=== PATIENT | female | born 1950 | race Caucasian/White ===

== ENCOUNTER 2016-07-16 20:23 | Emergency (ER) | payer MEDICARE ==
[~2016-07-16] VITALS: Ht 167.6 cm; Wt 82.0 kg
[~2016-07-16 20:23] MED LIST: DICL75 PO; ROBA750T3 PO; TRAM50 PO
[2016-07-16 21:34] VITALS: BP 148/79; PULSE 106; RESP 18; TEMP 98.4; O2SAT 96
[2016-07-16] MEDS ORDERED: LEVO137T18 PO (22:16)
[2016-07-16] MEDS ORDERED: GABA300C5 PO (22:16)
[2016-07-16] MEDS ORDERED: TRAM50TA PO (22:16)
[2016-07-16] MEDS ORDERED: ULTR50TA5 PO (22:27)
[2016-07-16] MEDS ORDERED: DOXY100C PO (22:27)
--- NOTE | 2016-07-16 22:27 | PD ---
HPI . Cat bite Chief Complaint: Bite or Sting Time Seen by Provider: 22:18 Travel History International Travel<30 days: No Contact w/Intl Traveler<30days: No Traveled to known affect area: No History of Present Illness HPI The patient was trying to catch a feral cat with a towel. She was inadvertently bitten on the finger. She states her last tetanus shot was 2 years ago. She reports allergy to penicillin. The cat is known to them. He has been coming around the house for a while and they have been feeding him. They were trying to catch him tonight to take him to the vet for routine vaccinations and neutering. The patient and her daughter state that the cat has been acting normally. [facility] Past Medical History Medical History: Denies Significant Hx Diminished Hearing: No Immunizations Current: No Tetanus Vaccination: < 5 Years Influenza Vaccination: No ?: Not Past Surgical History Other Surgery: Yes (breast augmentation) Social History Alcohol Use: No Tobacco Use: Yes (1 PPD) Substance Use: No Allergies-Medications (Allergen,Severity, Reaction): Coded Allergies: Flu Vaccine (Verified Allergy, Severe, SWELLING, 07/16/16) Penicillin (Verified Allergy, Intermediate, SWELLING, 07/16/16) Reported Meds & Prescriptions Reported Meds & Active Scripts Active Reported Gabapentin 300 Mg Cap 300 Mg PO TID Review of Systems General / Constitutional: No: Fever, Chills Skin: Positive Other (laceration) Physical Exam Narrative GENERAL: Healthy-appearing woman in no acute distress. SKIN: Warm and dry. Laceration to the pad of the right ring finger. Bleeding is controlled. The laceration is about 1 cm long. HEAD: Atraumatic. Normocephalic. EYES: Pupils equal and round. RESPIRATORY: No accessory muscle use. MUSCULOSKELETAL: No obvious deformities. No edema. NEUROLOGICAL: Awake and alert. No obvious cranial nerve deficits. Motor grossly within normal limits. Normal speech. PSYCHIATRIC: Appropriate mood and affect; insight and judgment normal. Data Data Last Documented VS Vital Signs Date Time Temp Pulse Resp B/P Pulse Ox O2 Delivery O2 Flow Rate FiO2 07/16/16 21:34 98.4 106 18 148/79 96 MDM Medical Decision Making Medical Screen Exam Complete: Yes Emergency Medical Condition: Yes Differential Diagnosis Differential diagnosis includes but is not limited to skin laceration, muscular laceration, tendon laceration, neurovascular laceration. Narrative Course Patient presents for treatment of a cat bite. Is up-to-date. She is allergic to penicillin. Animal control should probably be able to find this cat. Therefore, I will not initiate rabies vaccines tonight. Diagnosis Primary Impression: Cat bite of right hand Qualified Code: S61.451A - Cat bite of right hand, initial encounter Additional Instructions: Wash the wound twice a day with soap and water and then apply Neosporin ointment. Follow-up with your primary care physician any unusual pain, drainage , redness. Scripts Tramadol (Ultram)50 Mg Tab50 Mg PO Q4H PRN (PAIN) #10 TAB Ref 0 Prov:Jessica Macias MD 07/16/16 Doxycycline Hyclate 100 Mg [id number] Mg PO BID #20 CAP Ref 0 Prov:Jessica Macias MD 07/16/16 Disposition: 01 DISCHARGE HOME Condition: Stable Jessica Macias MD Jul 16, 2016 22:27
[2016-07-16] MEDS ORDERED: DOXYCYCLINE HYCLATE 100 MG CAP PO ONE (22:30)
[2016-07-16] MEDS ORDERED: NEOMYCIN/POLYMYXIN/BACITRACIN OINT 15 GM TUBE TOPICAL ONE (22:30)
[2016-07-16] MEDS ORDERED: DOXYCYCLINE HYCLATE 100 MG TAB PO ONE (23:00)
[2016-07-17] MEDS ORDERED: [UNRECOGNIZED DRUG - CODE] IM (15:09)
[2016-07-17] MEDS ORDERED: HYDR-3533 PO (16:59)
== END 2016-07-17 00:47 | disposition home or self-care (01) ==
LOC: PHED 20:23 → PHEFT 07-17 00:47
DX: S61.254A Open bite of right ring finger without damage to nail, initial encounter (principal); W55.01XA Bitten by cat, initial encounter; F17.210 Nicotine dependence, cigarettes, uncomplicated
CPT/HCPCS: 99283

== ENCOUNTER 2016-07-17 10:12 | Emergency (ER) | payer MEDICARE ==
[~2016-07-17] VITALS: Ht 170.2 cm; Wt 85.0 kg
[~2016-07-17 10:12] MED LIST changes: +DOXY100C PO; +GABA300C5 PO; +LEVO137T18 PO; +TRAM50TA PO; +ULTR50TA5 PO
[2016-07-17 10:14] VITALS: BP 132/74; PULSE 86; RESP 12; TEMP 98.2; O2SAT 98
[2016-07-17] MEDS ORDERED: RABIES IMMUNE GLOBULIN INJ 1,500 UNITS/10 ML VIAL IM ONE (14:45)
[2016-07-17] MEDS ORDERED: DOXYCYCLINE HYCLATE 100 MG CAP PO ONE (15:00)
[2016-07-17] MEDS ORDERED: RABIES VACCINE HUMAN DIPL CELL 2.5 UNITS/ML SYRINGE IM ONE (15:00)
[2016-07-17] MEDS ORDERED: GABAPENTIN 300 MG CAP PO ONE (15:00)
[2016-07-17] MEDS ORDERED: [UNRECOGNIZED DRUG - CODE] IM (15:09)
--- NOTE | 2016-07-17 15:11 | PD ---
HPI Chief Complaint: Bite or Sting Time Seen by Provider: 14:43 Travel History International Travel<30 days: No Contact w/Intl Traveler<30days: No Traveled to known affect area: No History of Present Illness HPI 66-year-old woman, bit by a feral cat last night. Was seen at [place] [facility]. Given a prescription for doxycycline. They're hoping to be able to identify the cat and keep it for observation and so no rabies prophylaxis was given at that time. They're unable to locate the cat and so she was referred back to the emergency department for rabies prophylaxis. Of note she's had severe reactions influenza vaccines in the past. History Past Medical History Tetanus Vaccination: < 5 Years Social History Alcohol Use: No Tobacco Use: Yes (1 PPD) Allergies-Medications (Allergen,Severity, Reaction): Coded Allergies: Flu Vaccine (Verified Allergy, Severe, SWELLING, 07/16/16) Penicillin (Verified Allergy, Intermediate, SWELLING, 07/16/16) Reported Meds & Prescriptions Reported Meds & Active Scripts Active Imovax Rabies (H.d.c.v.) Inj (Rabies Vaccine Human Diploid Cell) 2.5 Unit/Ml Inj 1 Ml IM DIRECTED 1 injection on day 3, 1 injection on day 7, 1 injection on day 14 Ultram (Tramadol HCl) 50 Mg Tab 50 Mg PO Q4H PRN Doxycycline Hyclate 100 Mg Cap 100 Mg PO BID Reported Levoxyl (Levothyroxine Sodium) 137 Mcg Tab 137 Mcg PO DAILY Gabapentin 300 Mg Cap 300 Mg PO TID Review of Systems Except as stated in HPI: all other systems reviewed are Neg Physical Exam Narrative GENERAL: Well-appearing 66-year-old woman, no acute distress. SKIN: Warm and dry. CARDIOVASCULAR: Warm and well perfused. RESPIRATORY: Normal rate and effort. MUSCULOSKELETAL: Laceration of the distal right finger. No active bleeding. No obvious infection. NEUROLOGICAL: Awake and alert. No gross deficits. Data Data Last Documented VS Vital Signs Date Time Temp Pulse Resp B/P Pulse Ox O2 Delivery O2 Flow Rate FiO2 07/17/16 10:14 98.2 86 12 132/74 98 Room Air Orders Rabies Immune Globulin Inj (Hyperrab S/D (07/17/16 14:45) Rabies Vaccine Human Cell Inj (Imovax In (07/17/16 15:00) Doxycycline (Vibramycin) (07/17/16 15:00) Gabapentin (Neurontin) (07/17/16 15:00) MDM Medical Decision Making Medical Screen Exam Complete: Yes Emergency Medical Condition: Yes Differential Diagnosis High risk wound Narrative Course Medical decision-making new para 66 year-old woman in need of rabies immunization. I spoke with the pharmacist regarding her allergies to previous flu vaccines. Recommend against the chick embryo cell vaccine. We'll give Imovax, rabies immune globulin. Continue doxycycline. Patient Instructions: General Instructions Additional Instructions: Follow-up with the health Department for vaccination with Rabies, Imovax Rabies vaccine on 3 days from now, 7 days from now, and 14 days for now. Return to the emergency department for any worsening pain redness swelling or drainage from the finger. Follow-up with your primary doctor in the next 3-5 days for routine follow-up. Med/Other Pt SpecificInfo: Prescription(s) given Scripts Hydrocodone-Acetaminophen (Lortab)5-325 Mg Tab1-2 Tab PO Q6H PRN (PAIN) #12 TAB Prov:Alvaro Stephen MD 07/17/16 Rabies Vaccine (Human Diploid Cell) Inj (Imovax Rabies (H.d.c.v.) Inj)2.5 Unit/ Ml Inj1 Ml IM DIRECTED #1 VIAL Ref 0 1 injection on day 3, 1 injection on day 7, 1 injection on day 14 Prov:Alvaro Stephen MD 07/17/16 Disposition: 01 DISCHARGE HOME Condition: Stable Alvaro Stephen MD Jul 17, 2016 15:11
[2016-07-17] MEDS ORDERED: HYDR-3533 PO (16:59)
[2016-07-17] MEDS ORDERED: ACETAMINOPHEN/HYDROcodone 325 MG/5 MG TAB PO ONE (17:00)
== END 2016-07-17 18:03 | disposition home or self-care (01) ==
LOC: NEPD 10:12
DX: S61.214A Laceration without foreign body of right ring finger without damage to nail, initial encounter (principal); W55.01XA Bitten by cat, initial encounter; Y93.9 Activity, unspecified; Y92.9 Unspecified place or not applicable; Y99.9 Unspecified external cause status
CPT/HCPCS: 90375; 90471; 90675; 96372

== ENCOUNTER 2016-07-20 04:34 | Emergency (ER) | payer MEDICARE ==
[~2016-07-20] VITALS: Ht 167.6 cm; Wt 82.2 kg
[~2016-07-20 04:34] MED LIST changes: -DICL75 PO; +HYDR-3533 PO; -ROBA750T3 PO; -TRAM50 PO; -TRAM50TA PO; +[UNRECOGNIZED DRUG - CODE] IM
[2016-07-20 04:43] VITALS: BP 130/76; PULSE 82; RESP 18; TEMP 98; O2SAT 96
--- NOTE | 2016-07-20 05:09 | PD ---
HPI Chief Complaint: Bite or Sting Time Seen by Provider: 05:03 Travel History International Travel<30 days: No Contact w/Intl Traveler<30days: No Traveled to known affect area: No History of Present Illness HPI 66-year-old female presents to the emergency department for day 3 rabies injection. Patient sustained cat bite from feral cat 07/16/16. Patient was subsequently seen 07/17/16 and initiated with rabies series. Patient was encouraged to follow-up with health Department to complete series but health Department is not open on Saturdays. Patient presents now for day 3 injection. Patient states finger is healing well. Patient is changing dressings to affected right fourth finger daily. Tetanus status is current 2016 and 2014. Patient is completing course of doxycycline. PFSH Past Medical History Narrative Medical Lumbar disc disease hypothyroidism breast augmentation tobacco use nursing notes reviewed Cardiovascular Problems: Yes Diminished Hearing: No Herniated Disk: Yes (LUMBAR X2) Immunizations Current: No Thyroid Disease: Yes (HYPOTHYROIDISM) Tetanus Vaccination: < 5 Years Influenza Vaccination: No ?: Not : 1 Para: 1 Past Surgical History Other Surgery: Yes (breast augmentation) Social History Alcohol Use: No Tobacco Use: Yes (1 PPD) Substance Use: No Allergies-Medications (Allergen,Severity, Reaction): Coded Allergies: Flu Vaccine (Verified Allergy, Severe, SWELLING, 07/20/16) Penicillin (Verified Allergy, Intermediate, SWELLING, 07/20/16) Reported Meds & Prescriptions Reported Meds & Active Scripts Active Lortab (Hydrocodone-Acetaminophen) 5-325 Mg Tab 1-2 Tab PO Q6H PRN Imovax Rabies (H.d.c.v.) Inj (Rabies Vaccine Human Diploid Cell) 2.5 Unit/Ml Inj 1 Ml IM DIRECTED 1 injection on day 3, 1 injection on day 7, 1 injection on day 14 Doxycycline Hyclate 100 Mg Cap 100 Mg PO BID Reported Levoxyl (Levothyroxine Sodium) 137 Mcg Tab 137 Mcg PO DAILY Gabapentin 300 Mg Cap 300 Mg PO TID Review of Systems Except as stated in HPI: all other systems reviewed are Neg General / Constitutional: No: Fever, Chills Cardiovascular: No: Chest Pain or Discomfort Respiratory: No: Shortness of Breath Gastrointestinal: No: Nausea, Vomiting Musculoskeletal: No: Myalgias, Arthralgias Skin: Positive Other (laceration right 4th finger) Hematologic/Lymphatic: No: Lymph Node Enlargement Physical Exam Narrative Gen.: Well-developed well-nourished female in no acute distress no respiratory distress Extremity: Attention distal right fourth finger laceration with macerated tissue but no purulent drainage no sign of infection intact range of motion. Cor: Regular rate and rhythm normal S1 and S2 Lungs: Clear to auscultation Data Data Last Documented VS Vital Signs Date Time Temp Pulse Resp B/P Pulse Ox O2 Delivery O2 Flow Rate FiO2 07/20/16 04:43 98.0 82 18 130/76 96 Orders Rabies Vaccine Human Cell Inj (Imovax In (07/20/16 05:15) MDM Medical Decision Making Medical Screen Exam Complete: Yes Emergency Medical Condition: Yes Medical Record Reviewed: Yes Differential Diagnosis Rabies vaccine series, wound infection Narrative Course Patient is here for her day 3 rabies vaccine injection as part of completion of her prophylactic series. Patient is current on tetanus status. Patient is taking doxycycline. Digit does not show evidence of infection. Diagnosis Primary Impression: Need for rabies vaccination Additional Impression: Cat bite of right hand Qualified Code: S61.451D - Cat bite of right hand, subsequent encounter Referrals: Primary Care Physician call for appointment Patient Instructions: General Instructions Additional Instructions: Site clean and dry Complete rabies vaccine series Complete course of antibiotic as prescribed Take acetaminophen/Tylenol for fever 100.4F or greater Return to the emergency department for any concerns or change in condition Follow-up with your primary care provider or hand surgeon call for appointment and as needed Med/Other Pt SpecificInfo: No Change to Meds Disposition: 01 DISCHARGE HOME Condition: Stable Evelin Rae MD Jul 20, 2016 05:09 Evelin Rae MD Jul 20, 2016 05:09
[2016-07-20] MEDS ORDERED: RABIES VACCINE HUMAN DIPL CELL 2.5 UNITS/ML SYRINGE IM ONE (05:15)
== END 2016-07-20 05:48 | disposition home or self-care (01) ==
LOC: PHED 04:34
DX: S61.451D Open bite of right hand, subsequent encounter (principal); F17.210 Nicotine dependence, cigarettes, uncomplicated; W55.01XD Bitten by cat, subsequent encounter
CPT/HCPCS: 90471; 90675